=== PATIENT | male | born 1950 | race Caucasian/White ===

== ENCOUNTER → 2016-07-31 | Outpatient (CLI) | payer OTHER ==
[~2016-07-31] MED LIST: IBUP800T23 PO; LISI10TA3 PO; METF500T PO; TYLE3 PO; Z.0.NO CURRENT MEDS
[2016-07-31 10:32] LABS: INTERNATIONAL NORMALIZED RATIO 0.9 RATIO; PROTHROMBIN TIME - PATIENT 10.4 SEC (9.8-11.6)
[2016-07-31 10:42] LABS: POTASSIUM 4.6 MEQ/L (3.5-5.1)
[2016-07-31 10:46] LABS: BLOOD, URINE NEG (NEG); COMMENT (UR) CULT NOT INDICATED; CULTURE IF INDICATED CULT NOT INDICATED; GLUCOSE,URINE NEG (NEG); KETONE, URINE NEG (NEG); MUCUS URINE FEW /lpf (OCC); NITRITE,URINE NEG (NEG); PH, URINE 5.5 (5.0-8.5); URINE COLOR YELLOW (YELLW/STRAW)
--- NOTE | 2016-07-31 12:22 | RADRPT ---
EXAM DATE/TIME: 07/31/2016 10:49 [place] COMPARISON: No previous studies available for comparison. INDICATIONS : Evaluate for pneumonia, pneumothorax or communicable disease. Pre op left shoulder surgery. MEDICAL HISTORY : None. SURGICAL HISTORY : None. ENCOUNTER: Initial ACUITY: 1 day PAIN SCORE: 0/10 LOCATION: Bilateral chest FINDINGS: There is a small area of atelectasis at the left lung base. The lungs are otherwise clear. The heart is normal in size. The visualized bony structures demonstrate degenerative changes in the a.c. joints bilaterally but are otherwise intact. CONCLUSION: 1. Small area of atelectasis at the left lung base. Loy Nolasco MD on July 31, 2016 at 12:19 Board Certified Radiologist. This report was verified electronically.
--- NOTE | 2016-07-31 22:20 | EKG ---
Date Performed: 07/31/2016 Time Performed: 10:32:39 PTAGE: 65 years EKG: Sinus rhythm NORMAL ECG NO PREVIOUS TRACING DOCTOR: Angela Fitch Interpretating Date/Time 07/31/2016 22:18:16
== END ==
LOC: CPRE 09:51
PROVIDERS: ATTEND Orthopaedic Surgery
DX: Z01.812 Encounter for preprocedural laboratory examination (principal); Z01.810 Encounter for preprocedural cardiovascular examination; Z01.811 Encounter for preprocedural respiratory examination; M75.42 Impingement syndrome of left shoulder; M75.112 Incomplete rotator cuff tear or rupture of left shoulder, not specified as traumatic
CPT/HCPCS: 36415; 71020; 80048; 81001; 85610; 93005

== ENCOUNTER → 2016-08-07 | Day surgery (SDC) | payer OTHER ==
--- NOTE | 2016-07-31 16:55 | MH ---
cc: MADINA ALVES DATE OF ADMISSION: 08/07/2016 ADMITTING DIAGNOSIS: 1. Impingement syndrome of the left shoulder. 2. Left subacromial bursitis. 3. incomplete rotator cuff tear of the left shoulder. 4. Pain of the left shoulder HISTORY OF PRESENT ILLNESS: The patient is a 65-year-old white male who initially presented to the office in May of this year for an evaluation of his right shoulder. He noted a significant history dating back to the when he injured his shoulder secondary to weight lifting activities and later underwent arthroscopic surgery as completed at the [facility] in [place], [place]. He required a second procedure the following year because of continued symptoms without any benefit being noted and thus in 1996 the third procedure involving an open repair of his rotator cuff was completed that did result in some overall improvement of his shoulder symptoms. 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 He retired in 2007 and relocated to [place] where he continued to do reasonably well until the past several months when he began to note some soreness about the right shoulder area. He was seen by his primary care physician at which time an MRI scan of his right shoulder reported tendinopathy of the supraspinatus and infraspinatus tendons, but no associated full-thickness tear. There was an intramuscular tear involving the infraspinatus muscle. The patient was prescribed hydrocodone for pain management and ibuprofen 800 mg at the time of his initial office evaluation. His x-ray studies were without evidence of any acute bony abnormality and the patient was treated with a local cortisone injection about his right shoulder and prescribed diclofenac 75 milligrams twice daily. He returned to the office in follow-up disposition. At that time, he reported that the injection to his right shoulder had proven to be favorable in addition to receiving physical therapy. Unfortunately he began to be become symptomatic with progressive pain about his left shoulder for which he had undergone a previous MRI scan that had been completed per his primary care physician. The findings of this study did report rotator cuff tendinosis with a 70% partial thickness bursal-sided tear of the distal infraspinatus tendon measuring approximately 21 x 7 mm. There was edema throughout the area thought to be secondary to impingement and a type 2 acromion with moderate to severe degenerative changes. The acromioclavicular joint associated with subacromial and subdeltoid bursitis. The patient received a followup injection to his left shoulder and was encouraged to continue with conservative management while again being followed on an outpatient basis. He returned to the office more recently expressing considerable incapacitation with regards to ongoing pain about his left shoulder that was interfering with all activities of daily living. His injection that he had recently received unfortunately had not proven to be of any appreciable benefit and the patient expressed his desire to proceed with a more definitive course of treatment. The involvement of operative intervention that would involve an acromioplasty of the left shoulder with a open rotator cuff repair was reviewed in detail. Emphasis was made regarding the fact that the decision to proceed with surgery would be left entirely to the patient's discretion. The patient readily admitted that he was quite eager to proceed with treatment along this line and in compliance with his wishes he is currently been scheduled for admission in order that the above be accomplished. PAST MEDICAL HISTORY: His past medical history, hospitalizations and surgeries in addition to the procedures of his right shoulder described have included: 1. Operative intervention for TMJ disorder. 2. Tonsillectomy. 3. Colonoscopy. His medical illnesses include: 1. Hypertension. 2. Diabetes. MEDICATIONS: His current medications include: 1. Lisinopril 10 milligrams daily. 2. Metformin 500 milligrams twice daily. 3. Ibuprofen p.r.n. The patient does not conform to any specific dietary restrictions. ALLERGIES: There are no indicated drug allergies. REVIEW OF SYSTEMS: He wears glasses for reading purposes. Denies headache, seizure or syncope. No sinus congestion or epistaxis. Auditory acuity intact. No tinnitus. No bleeding gums or dysphagia. Denies cough, shortness of breath, upper respiratory infection, pneumonia or tuberculosis. No angina or heart disease. His appetite is good. Bowel movements are regular. There has been no hepatitis, gallbladder disease or ulcers. There is a positive history of hemorrhoids. No urinary tract infection. No kidney stones. No prostate disease. Fractures of the right hand, nasal area and ribs all treated nonoperatively. No psychiatric illness. His remaining review of systems is unremarkable and noncontributory. FAMILY HISTORY: 34 years. His is 61 years of age and described as being in good health. One daughter indicated to be in good health. Family history is positive for hypertension and bone cancer. SOCIAL HISTORY: The patient has been retired for eight years as described. He completed a high school education with additional college credits. He denies active use of tobacco. Ethanol consumption in the form of beer. PHYSICAL EXAMINATION: HEIGHT: 5 feet 11 inches. WEIGHT: 215 pounds. GENERAL: An alert, oriented and responsive 65-year-old white male who sits quietly upon examination table with no obvious distress. HEAD, EYES, EARS, NOSE, THROAT: Pupils are equally round and reactive to light. Extraocular movements full. Sclerae clear. External nares clear. External auditory canals clear. Dental intact. Mucous membranes pink and moist. Pharynx clear. NECK: Supple. Active range of motion without appreciable pain. Carotid pulse bilaterally. Trachea midline. Thyroid without enlargement. LUNGS: Clear to auscultation and percussion. BACK: No CVA tenderness. No discomfort throughout the dorsal or lumbar spine. HEART: Regular rhythm. No murmur or gallop. ABDOMEN: Abdomen is soft, nontender. Bowel sounds present. RECTAL: Deferred. EXTREMITIES: Left shoulder - there is generalized tenderness about the anterior and superior aspects of the shoulder without palpable deformity. Limited and guarded mobility of the shoulder joint in all ranges assessed with the patient unable to comfortably elevate his left hand above the head level. No sensation of crepitation or instability about the glenohumeral joint. Drop arm test is minimally positive. Maxillofacial Prosthetics Dentist strength intact. Sensory intact. NEUROLOGIC: Cranial nerves II-XII grossly intact. IMPRESSION: 1. Impingement syndrome left shoulder. 2. Left subacromial bursitis. 3. Incomplete rotator cuff tear left shoulder. 4. Pain left shoulder. PLAN: Acromioplasty left shoulder with mini open rotator cuff repair. The nature of the planned surgical procedure, the potential complications and risks associated, the expectations of surgery and the consent form were thoroughly reviewed with the patient in the presence of his prior to admission to the hospital. Claudy has indicated his full understanding regarding all of the above and given consent to proceed with treatment as outlined. S MD FIONA Browning/JCC /4:29 PM /4:44 PM
[~2016-08-07] MED LIST changes: +*ONDANSETRON 4 MG VIAL PERIprocedural Use ONLY ONE; +*PROMETHAZINE 25 MG/ML VIAL PERIprocedural use ONLY ONE; +ACETAMINOPHEN 1000 MG/100 ML VIAL IV ONE; +ACETAMINOPHEN/HYDROcodone 325 MG/7.5 MG TAB PO PRN; +CHLORHEXIDINE GLUCONATE 2 % 1 PACK (2 CLOTHS) TOPICAL PRN; +DEXAMETHASONE SOD PHOS 4 MG/ML VIAL ONE; +DO NOT ADM ANY ANTICOAGULANT DRUGS PRN; +FAMOTIDINE 20 MG/2 ML VIAL ONE; +INSULIN HUMAN REGULAR 1,000 UNITS/10 ML VIAL SQ PRN; +LACTATED RINGER'S 1000 ML INJ 1,000 ML IV ONE; +LACTATED RINGER'S 1000 ML IV PRN; +METOPROLOL TARTRATE 25 MG TAB PO PRN; +MIDAZOLAM HCL 2 MG/2 ML VIAL ONE; +MORPHINE SULFATE 8 MG/ML INJ IM PRN; +NEOSTIGMINE 3 MG/3 ML SYR IV ONE; +ONDANSETRON HCL 4 MG/2 ML VIAL IV PUSH ONE; +PHENYLEPH/NS 1000 MCG/10 ML SYR IV ONE; +POVIDONE IODINE 5% (ANTISEPSIS KIT) 4 APPLICATIONS EACH NARE PRN; +POVIDONE IODINE 7.5% SCRUB 118 ML BOTTLE TOPICAL SCH; +PROPOFOL 200 MG/20 ML AMP IV ONE; +SODIUM CHLORID 0.9% 500 ML IV PRN; +STERILE WATER FOR INJ 20 ML VIAL ONE; -TYLE3 PO; -Z.0.NO CURRENT MEDS; +[UNRECOGNIZED DRUG - REMARK] IM; +ceFAZolin 2 GM PREMIX 50 ML IV SCH; +ceFAZolin INJ 1,000 MG VIAL ONE; +ePHEDrine/NS 25 MG/5 ML SYR IV ONE; +fentaNYL CITRATE 250 MCG/5 ML AMP ONE
[2016-08-07 06:10] VITALS: BP 141/86; PULSE 79; RESP 16; TEMP 98.6; O2SAT 98
[2016-08-07 12:37] VITALS: BP 136/83; PULSE 88; RESP 18; TEMP 97.8; O2SAT 97
--- NOTE | 2016-08-07 22:56 | MP ---
cc: MADINA MAR DATE OF SURGERY 08/07/16 PREOPERATIVE DIAGNOSIS Impingement syndrome of the left shoulder with left subacromial bursitis and incomplete rotator cuff tear and pain of the left shoulder. POSTOPERATIVE DIAGNOSIS Impingement syndrome of the left shoulder with left subacromial bursitis and incomplete rotator cuff tear and pain of the left shoulder. PROCEDURE Acromioplasty left shoulder with mini open rotator cuff repair, left shoulder. SURGEON MD Isabela ANESTHESIA General endotracheal. FORMAT Following induction of general anesthesia by endotracheal intubation as completed per the Department of Anesthesia the patient was positioned upon the operating table in a modified beach-chair configuration. The left shoulder was isolated with a U-drape, thereafter, being prepped with Betadine solution and draped into a sterile field in the routine manner. Prior to initiation of the actual procedure the standard time-out protocol was completed. All parameters were appropriately addressed and confirmed by operating room personnel. A sharp skin incision was initiated superiorly along the shoulder region adjacent to the palpable prominence of the lateral margin of the acromion. The incision was developed to underlying subcutaneous tissue with hemostasis maintained by electrocautery. By deepening dissection the underlying deltoid musculature was exposed along its anterior raphe. The deltoid was divided in a medial to lateral orientation facilitating entry into the subacromial space. Examination revealed significant hypertrophy and downsloping of the acromion that was consistent with an impingement process. The underlying subscapularis tendon demonstrated significant attrition with localized inflammatory response. A curved osteotome was passed deep to the acromion but superficial to the underlying rotator cuff and thereafter an oblique osteotomy of the anterior inferior margin of the acromion was accomplished. The undersurface of which was contoured with bone rasp. Visual and digital inspection thereafter confirmed an adequate decompression within the confines of the subacromial space. The area of attrition of the previously identified distal infraspinatus tendon was exposed and an elliptical excision of this attenuated segment was sharply excised and thereafter a primary repair was accomplished with interrupted 0 Polydek suture. Range of motion assessment thereafter demonstrated stability of the rotator cuff with no evidence of residual impingement. The wound was copiously irrigated with saline solution. Hemostasis being maintained by electrocautery. The deltoid musculature was thereafter repaired with interrupted 0 Polydek suture. The remaining portion of the wound was closed in layers in the routine manner. Skin margins being reapproximated with a running subcuticular 3-0 Vicryl suture over which Steri-Strips were applied. Xeroform gauze and a bulky dry sterile dressing were placed. The extremity was supported in an arm sling. Anesthesia was discontinued. The patient thus transferred to a hospital stretcher and returned to the recovery room in satisfactory condition having tolerated his operative procedure well. Estimated blood loss was less than 10 cc. Madina Mar MD NBS/EO /10:39 AM /10:41 PM
== END | disposition home or self-care (01) ==
LOC: HSDC 06:01
PROVIDERS: ATTEND Orthopaedic Surgery
DX: M75.42 Impingement syndrome of left shoulder (principal); M75.112 Incomplete rotator cuff tear or rupture of left shoulder, not specified as traumatic; M75.52 Bursitis of left shoulder; I10 Essential (primary) hypertension; E11.9 Type 2 diabetes mellitus without complications
CPT/HCPCS: 01630; 29827; J0131; J0690; J1100; J2250; J2370; J2405; J2550; J2710; J3010; J7120